=== PATIENT | female | born 1990 | race Caucasian/White ===

== ENCOUNTER 2019-02-03 09:47 | Observation (INO) | payer OTHER ==
[2019-02-03 10:33] LABS: ANION GAP 14.6; CHLORIDE,CL 105 mmol/L (101-111); SODIUM,NA 134 mmol/L (135-145)
--- NOTE | 2019-02-03 13:32 | CR ---
Clinical history: 28-year-old female threatened by "Carbon monoxide poisoning". Interpretation: Upright AP portable chest unremarkable. External cardiac care unit nurse leads and oxygen cannula/mask. Normal cardiac silhouette without alveolar edema or dependent effusion. No lung mass hilar lymphadenopathy or focal lobar pneumonia. No atelectasis/collapse. No pneumothorax. CONCLUSION: No acute cardiopulmonary abnormality. No pulmonary edema.
[2019-02-03] MEDS ORDERED: Ondansetron 4 MG/2 ML SDV IVPUSH PRN (13:45)
[2019-02-03] MEDS ORDERED: Sodium Chloride 0.9% 1,000 ML IV SCH (13:45)
[2019-02-03] MEDS: Acetaminophen 325 MG Tab PO PRN ×3 (14:47→23:45)
--- NOTE | 2019-02-03 15:13 | PCM.HP ---
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 The patient was exposed to carbon monoxide at the place of work. There was a gas leak at the place of work which was supposed to have been fixed about 2 weeks ago. Patient was on duty since yesterday evening. Woke up this morning and was having severe headache. Headache was generalized in nature. Intensity was about 8 on a scale cough 0-10. Patient was having dizziness which she described as lightheadedness. She also felt somewhat nauseated. She called a friend who eventually brought her to the emergency room. Her carpal monoxide was checked and found to be elevated. Patient denies having chest pain. Denies abdominal pain. - Related Data Allergies/Adverse Reactions: Allergies Allergy/AdvReac Type Severity Reaction Status Date / Time No Known Allergies Allergy Verified 02/03/19 14:25 Home Medications: Home Meds FLUoxetine HCl [Prozac] 20 mg PO DAILY 07/04/18 [History] Past Medical History - Past Health History Medical/Surgical History: Denies Medical/Surgical History HEENT History: Reports: Impaired Vision Cardiovascular History: Reports: None Respiratory History: Reports: None Gastrointestinal History: Reports: None Genitourinary History: Reports: None LICENSED WEIGHER History: Reports: None Musculoskeletal History: Reports: None Neurological History: Reports: None Psychiatric History: Reports: Anxiety, Depression Endocrine/Metabolic History: Reports: None Hematologic History: Reports: None Immunologic History: Reports: None Oncologic (Cancer) History: Reports: None Dermatologic History: Reports: None - Infectious Disease History Infectious Disease History: Reports: None - Past Surgical History Head Surgeries/Procedures: Reports: None Social & Family History - Family History Family Medical History: Noncontributory - Tobacco Use Smoking Status *Q: Current Every Day Smoker Years of Tobacco use: 5 Packs/Tins Daily: 1 - Caffeine Use Caffeine Use: Reports: Energy Drinks - Recreational Drug Use Recreational Drug Use: No H&P Review of Systems - Review of Systems: Review Of Systems: See Below General: Reports: Weakness, Fatigue HEENT: Reports: No Symptoms Pulmonary: Reports: No Symptoms Cardiovascular: Reports: Lightheadedness Gastrointestinal: Reports: Nausea Genitourinary: Reports: No Symptoms Musculoskeletal: Reports: No Symptoms Neurological: Reports: Dizziness, Headache Exam - Exam Exam: See Below - Vital Signs Vital Signs: Last Vital Signs Temp 36.9 C 02/03/19 13:57 Pulse 68 02/03/19 13:57 Resp 20 02/03/19 13:57 BP 130/74 02/03/19 13:57 Pulse Ox 100 02/03/19 13:57 Weight: 95.073 kg - Exam General: Alert, Cooperative Neck: Supple Lungs: Clear to Auscultation, Normal Respiratory Effort Cardiovascular: Regular Rate, Regular Rhythm Back Exam: Normal Inspection, Full Range of Motion, NT Extremities: Normal Inspection, Normal Range of Motion, Non-Tender, No Pedal Edema, Normal Capillary Refill Neuro Extensive - Mental Status: Alert, Oriented x3, Normal Mood/Affect Psychiatric: Alert, Normal Affect, Normal Mood - Patient Data Lab Results Last 24 hrs: Laboratory Results - last 24 hr 02/03/19 02/03/19 02/03/19 Range/Units 10:05 10:05 10:22 WBC 9.9 (5.0-10.0) 10^3/uL RBC 4.68 (4.2-5.4) 10^6/uL Hgb 14.3 (12.0-16.0) g/dL Hct 42.4 (37.0-47.0) % MCV 90.6 (80-100) fL MCH 30.6 (27.0-34.0) pg MCHC 33.7 (33.0-35.0) g/dL Plt Count 242 (150-450) 10^3/uL Neut % (Auto) 76.9 H (42.2-75.2) % Lymph % (Auto) 16.9 L (20.5-50.1) % [place] % (Auto) 4.6 (2-8) % Eos % (Auto) 1.4 (1.0-3.0) % Baso % (Auto) 0.2 (0.0-1.0) % ABG Carboxyhemoglobin 31.7 H* (0-10) % Sodium 134 L (135-145) mmol/L Potassium 3.6 (3.6-5.0) mmol/L Chloride 105 (101-111) mmol/L Carbon Dioxide 18.0 L (21.0-31.0) mmol/L Anion Gap 14.6 BUN 13 (7-18) mg/dL Creatinine 0.9 (0.6-1.3) mg/dL Est Cr Clr Drug Dosing 78.93 mL/min Estimated GFR (MDRD) > 60 BUN/Creatinine Ratio 14.44 Glucose 120 H (74-105) mg/dL Lactic Acid (0.5-2.2) mmol/L Calcium 8.1 L (8.4-10.2) mg/dl Total Bilirubin 1.0 (0.2-1.0) mg/dL AST 21 (10-42) IU/L ALT 20 (10-60) IU/L Alkaline Phosphatase 72 (42-121) IU/L Total Protein 6.7 (6.7-8.2) g/dl Albumin 3.5 (3.2-5.5) g/dl Globulin 3.2 Albumin/Globulin Ratio 1.09 05/29/19 Range/Units 11:13 WBC (5.0-10.0) 10^3/uL RBC (4.2-5.4) 10^6/uL Hgb (12.0-16.0) g/dL Hct (37.0-47.0) % MCV (80-100) fL MCH (27.0-34.0) pg MCHC (33.0-35.0) g/dL Plt Count (150-450) 10^3/uL Neut % (Auto) (42.2-75.2) % Lymph % (Auto) (20.5-50.1) % [place] % (Auto) (2-8) % Eos % (Auto) (1.0-3.0) % Baso % (Auto) (0.0-1.0) % ABG Carboxyhemoglobin (0-10) % Sodium (135-145) mmol/L Potassium (3.6-5.0) mmol/L Chloride (101-111) mmol/L Carbon Dioxide (21.0-31.0) mmol/L Anion Gap BUN (7-18) mg/dL Creatinine (0.6-1.3) mg/dL Est Cr Clr Drug Dosing mL/min Estimated GFR (MDRD) BUN/Creatinine Ratio Glucose (74-105) mg/dL Lactic Acid 1.0 (0.5-2.2) mmol/L Calcium (8.4-10.2) mg/dl Total Bilirubin (0.2-1.0) mg/dL AST (10-42) IU/L ALT (10-60) IU/L Alkaline Phosphatase (42-121) IU/L Total Protein (6.7-8.2) g/dl Albumin (3.2-5.5) g/dl Globulin Albumin/Globulin Ratio Result Diagrams: 02/03/19 10:05 02/03/19 10:05 Problem List Initiated/Reviewed/Updated: Yes Orders Last 24hrs: Active Orders 24 hr Category Date Time Status Patient Status [ADT] Routine ADT 02/03/19 13:45 Active Initiate/Renew Non-Violent Restraints (All Ages) Q24H Care 02/03/19 13:15 Ordered Nrsg Assess Restraint Init/Mon [RC] Q1H Care 02/03/19 13:03 Active Nrsg NV Restr Reassessment [RC] Q24H Care 02/04/19 13:03 Active Oxygen Therapy [RC] PRN Care 02/03/19 13:45 Active RT Carbon Monoxide Diffusion [RC] Click to Edit Care 02/03/19 10:12 Active Up ad Rama [RC] ASDIRECTED Care 02/03/19 13:45 Active VTE/DVT Education [RC] PER UNIT ROUTINE Care 02/03/19 13:45 Active Vital Signs [RC] Q4H Care 02/03/19 13:45 Active Regular Diet [DIET] Diet 02/03/19 Dinner Active CARBOXYHEMOGLOBIN [BG] Routine Lab 02/03/19 18:00 Ordered HCG QUALITATIVE,URINE [URCHEM] Stat Lab 02/03/19 10:13 Ordered UA RFX JOREG AND CULT IF INDIC [URIN] Stat Lab 02/03/19 10:13 Ordered Acetaminophen [Tylenol] Med 02/03/19 13:45 Active 650 mg PO Q4H PRN Enoxaparin [Lovenox] Med 02/04/19 09:00 Active 40 mg SUBCUT DAILY Ondansetron [Zofran] Med 02/03/19 13:45 Active 4 mg IVPUSH Q6H PRN Sodium Chloride 0.9% [Normal Saline] 1,000 ml Med 02/03/19 13:45 Active IV ASDIRECTED Resuscitation Status Routine Resus Stat 02/03/19 13:45 Ordered Medication Orders Acetaminophen (Tylenol) 650 mg PO Q4H PRN PRN Reason: Pain (Mild 1-3)/fever Last Admin: 02/03/19 14:47 Dose: 650 mg Enoxaparin Sodium (Lovenox) 40 mg SUBCUT DAILY [facility] Sodium Chloride (Normal Saline) 1,000 mls @ 50 mls/hr IV ASDIRECTED [facility] Last Admin: 02/03/19 14:47 Dose: 50 mls/hr Ondansetron HCl (Zofran) 4 mg IVPUSH Q6H PRN PRN Reason: Nausea/Vomiting Assessment/Plan Comment:: Assessment/plan: #. Carbon monoxide poisoning Patient presented with headache, dizziness and nausea Carpal monoxide level is elevated in the blood #. Headache Likely due to carbon monoxide poisoning #. Tobacco use disorder Plan: Admit patient to medical floor 100% nonrebreather oxygen mask Check serial carbon monoxide levels Tried to transfer the patient to a facility that has hyperbaric oxygen. Was informed that there is non in the state. Patient is hemodynamically stable at this point and headache is improving
[2019-02-03] MEDS ORDERED: FLUoxetine 10 MG Cap PO SCH (21:00)
[2019-02-04] MEDS ORDERED: Enoxaparin 40 MG/0.4 ML Syringe SUBCUT SCH (09:00)
--- NOTE | 2019-02-04 10:29 | PCM.DCSUM1 ---
Discharge Summary - Hospital Course Free Text/Narrative:: Patient was admitted for CO poisoning. She was placed on high flow oxygen. CO level was trended. Levels came down, 0.5 at time of discharge. Patient had no residual symptoms. She was discharged to follow up with PCP. Diagnosis: Stroke: No - Discharge Data Discharge Date: 02/04/19 Discharge Disposition: Home, Self-Care 01 Condition: Good - Patient Instructions Diet: Usual Diet as Tolerated - Discharge Plan *PRESCRIPTION DRUG MONITORING PROGRAM REVIEWED*: Not Applicable *COPY OF PRESCRIPTION DRUG MONITORING REPORT IN PATIENT DIEGO: Not Applicable Home Medications: Home Meds FLUoxetine HCl [Prozac] 20 mg PO DAILY 07/04/18 [History] Oxygen Therapy Mode: Room Air Patient Handouts: Carbon Monoxide Poisoning, [id number] Referrals: PCP,None [Primary Care Provider] - - Discharge Summary/Plan Comment DC Time >30 min.: Yes - General Info Date of Service: 02/04/19 Admission Dx/Problem (Free Text: Admission Diagnosis/Problem Admission Diagnosis/Problem Poisoning Subjective Update: No acute events overnight. Patient reports that she is doing okay. She denies chest pain, shortness of breath, fevers, chills, n/v/d/c, weakness, or any acute symptoms. - Review of Systems General: Reports: No Symptoms HEENT: Reports: No Symptoms Pulmonary: Reports: No Symptoms Cardiovascular: Reports: No Symptoms Gastrointestinal: Reports: No Symptoms Genitourinary: Reports: No Symptoms Musculoskeletal: Reports: No Symptoms Skin: Reports: No Symptoms Neurological: Reports: No Symptoms Psychiatric: Reports: No Symptoms - Patient Data Vitals - Most Recent: Last Vital Signs Temp 97.5 F 02/04/19 08:32 Pulse 78 02/04/19 08:32 Resp 20 02/04/19 08:32 BP 121/69 02/04/19 08:32 Pulse Ox 100 02/04/19 08:32 Weight - Most Recent: 209 lb 9.6 oz I&O - Last 24 hours: Intake & Output 02/03/19 02/04/19 02/04/19 22:59 06:59 14:59 Intake Total 300 360 Balance 300 360 Lab Results - Last 24 hrs: Laboratory Results - last 24 hr 02/03/19 02/03/19 02/03/19 Range/Units 10:05 10:22 11:13 ABG Carboxyhemoglobin 31.7 H* (0-10) % Sodium 134 L (135-145) mmol/L Potassium 3.6 (3.6-5.0) mmol/L Chloride 105 (101-111) mmol/L Carbon Dioxide 18.0 L (21.0-31.0) mmol/L Anion Gap 14.6 BUN 13 (7-18) mg/dL Creatinine 0.9 (0.6-1.3) mg/dL Est Cr Clr Drug Dosing 78.93 mL/min Estimated GFR (MDRD) > 60 BUN/Creatinine Ratio 14.44 Glucose 120 H (74-105) mg/dL Lactic Acid 1.0 (0.5-2.2) mmol/L Calcium 8.1 L (8.4-10.2) mg/dl Total Bilirubin 1.0 (0.2-1.0) mg/dL AST 21 (10-42) IU/L ALT 20 (10-60) IU/L Alkaline Phosphatase 72 (42-121) IU/L Total Protein 6.7 (6.7-8.2) g/dl Albumin 3.5 (3.2-5.5) g/dl Globulin 3.2 Albumin/Globulin Ratio 1.09 Urine Color (YELLOW) Urine Appearance (CLEAR) Urine pH (5.0-9.0) Ur Specific [place] (1.005-1.030) Urine Protein (NEGATIVE) Urine Glucose (UA) (NEGATIVE) Urine Ketones (NEGATIVE) Urine Occult Blood (NEGATIVE) Urine Nitrite (NEGATIVE) Urine Bilirubin (NEGATIVE) Urine Urobilinogen (0.2-1.0) mg/dL Ur Leukocyte Esterase (NEGATIVE) Urine HCG, Qual 02/03/19 02/03/19 02/03/19 Range/Units 16:16 16:16 20:25 ABG Carboxyhemoglobin 0 (0-10) % Sodium (135-145) mmol/L Potassium (3.6-5.0) mmol/L Chloride (101-111) mmol/L Carbon Dioxide (21.0-31.0) mmol/L Anion Gap BUN (7-18) mg/dL Creatinine (0.6-1.3) mg/dL Est Cr Clr Drug Dosing mL/min Estimated GFR (MDRD) BUN/Creatinine Ratio Glucose (74-105) mg/dL Lactic Acid (0.5-2.2) mmol/L Calcium (8.4-10.2) mg/dl Total Bilirubin (0.2-1.0) mg/dL AST (10-42) IU/L ALT (10-60) IU/L Alkaline Phosphatase (42-121) IU/L Total Protein (6.7-8.2) g/dl Albumin (3.2-5.5) g/dl Globulin Albumin/Globulin Ratio Urine Color Yellow (YELLOW) Urine Appearance Slightly cloudy (CLEAR) Urine pH 6.5 (5.0-9.0) Ur Specific [place] 1.020 (1.005-1.030) Urine Protein Negative (NEGATIVE) Urine Glucose (UA) Negative (NEGATIVE) Urine Ketones Negative (NEGATIVE) Urine Occult Blood Negative (NEGATIVE) Urine Nitrite Negative (NEGATIVE) Urine Bilirubin Negative (NEGATIVE) Urine Urobilinogen 0.2 (0.2-1.0) mg/dL Ur Leukocyte Esterase Negative (NEGATIVE) Urine HCG, Qual Negative 02/04/19 Range/Units 08:00 ABG Carboxyhemoglobin 0.5 (0-10) % Sodium (135-145) mmol/L Potassium (3.6-5.0) mmol/L Chloride (101-111) mmol/L Carbon Dioxide (21.0-31.0) mmol/L Anion Gap BUN (7-18) mg/dL Creatinine (0.6-1.3) mg/dL Est Cr Clr Drug Dosing mL/min Estimated GFR (MDRD) BUN/Creatinine Ratio Glucose (74-105) mg/dL Lactic Acid (0.5-2.2) mmol/L Calcium (8.4-10.2) mg/dl Total Bilirubin (0.2-1.0) mg/dL AST (10-42) IU/L ALT (10-60) IU/L Alkaline Phosphatase (42-121) IU/L Total Protein (6.7-8.2) g/dl Albumin (3.2-5.5) g/dl Globulin Albumin/Globulin Ratio Urine Color (YELLOW) Urine Appearance (CLEAR) Urine pH (5.0-9.0) Ur Specific [place] (1.005-1.030) Urine Protein (NEGATIVE) Urine Glucose (UA) (NEGATIVE) Urine Ketones (NEGATIVE) Urine Occult Blood (NEGATIVE) Urine Nitrite (NEGATIVE) Urine Bilirubin (NEGATIVE) Urine Urobilinogen (0.2-1.0) mg/dL Ur Leukocyte Esterase (NEGATIVE) Urine HCG, Qual Med Orders - Current: Current Medications Acetaminophen (Tylenol) 650 mg PO Q4H PRN PRN Reason: Pain (Mild 1-3)/fever Last Admin: 02/03/19 23:45 Dose: 650 mg Enoxaparin Sodium (Lovenox) 40 mg SUBCUT DAILY [facility] Last Admin: 02/04/19 08:26 Dose: Not Given Fluoxetine HCl (Prozac) 40 mg PO BEDTIME [facility] Last Admin: 02/03/19 20:32 Dose: 40 mg Sodium Chloride (Normal Saline) 1,000 mls @ 50 mls/hr IV ASDIRECTED [facility] Last Admin: 02/03/19 14:47 Dose: 50 mls/hr Ondansetron HCl (Zofran) 4 mg IVPUSH Q6H PRN PRN Reason: Nausea/Vomiting - Exam General: Reports: Alert, Oriented, No Acute Distress HEENT: Reports: Pupils Equal, Pupils Reactive, EOMI, Mucous Membr. Moist/[place] Neck: Reports: Supple Lungs: Reports: Clear to Auscultation, Normal Respiratory Effort Cardiovascular: Reports: Regular Rate, Regular Rhythm GI/Abdominal Exam: Normal Bowel Sounds, Soft, Non-Tender, No Distention Extremities: Normal Inspection, Non-Tender, No Pedal Edema Skin: Reports: Warm, Dry, Intact Neurological: Reports: No New Focal Deficit Psy/Mental Status: Reports: Alert, Normal Affect, Normal Mood
== END 2019-02-04 11:00 | disposition home or self-care (01) ==
LOC: DL.ED 09:47 → DL.MS 13:40 → UNDOADMOB 13:40 → DL.MS 13:45
PROVIDERS: ADMIT Hospitalist; ATTEND Hospitalist
DX: T58.11XA Toxic effect of carbon monoxide from utility gas, accidental (unintentional), initial encounter (principal); R51 Headache; R42 Dizziness and giddiness; R11.0 Nausea; F32.9 Major depressive disorder, single episode, unspecified; F17.200 Nicotine dependence, unspecified, uncomplicated; Z79.899 Other long term (current) drug therapy
CPT/HCPCS: 36415; 71045; 80053; 81003; 81025; 82375; 83605; 85025; 93005; 99285; A9270; G0378; J7030

== ENCOUNTER 2024-09-08 01:31 | Emergency (ER) | payer OTHER | END 2024-09-08 05:02 | disposition left against medical advice (07) | LOC: DL.ED 01:31 | DX: Z02.89 Encounter for other administrative examinations (principal); S00.03XA Contusion of scalp, initial encounter; F17.290 Nicotine dependence, other tobacco product, uncomplicated; Y04.0XXA Assault by unarmed brawl or fight, initial encounter | CPT/HCPCS: 70450; 99284 ==

== ENCOUNTER 2025-07-13 15:03 | Emergency (ER) | payer BC | END 2025-07-13 15:19 | LOC: DL.ED 15:03 | DX: Z02.89 Encounter for other administrative examinations (principal) | CPT/HCPCS: 99283 ==